=== PATIENT | female | born 2005 | race African-American/Black ===

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

== ENCOUNTER 2025-02-18 15:53 | Emergency (ER) | payer OTHER, SELFPAY ==
[2025-02-18 16:23] VITALS: BP 118/74; PULSE 88; RESP 16; TEMP 36.3; O2SAT 100; BMI 27.4
--- NOTE | 2025-02-18 16:25 | ED_ITS ---
HPI - General Adult General Chief complaint: General Medical Stated complaint: test? Time Seen by Provider: 02/18/25 18:23 Source: patient Mode of arrival: ambulatory Limitations: no limitations History of Present Illness ED Provider: DOM BRAN PA-C HPI narrative: 19 year old female presents to the ED today requesting a test and STD testing. She has no complaints/ concerns at present. States I just want to make sure . LMP 2-3 weeks ago. She is currently sexually active. She is not on control. Related Data Allergies Allergy/AdvReac Type Severity Reaction Status Date / Time shellfish derived (shellfish) Allergy Rash Verified 02/18/25 16:26 Review of Systems Review of Systems: Yes all other systems are reviewed and are negative PMFSH Past Medical History Attestation statement: The following information was validated with the patient. Source: old records reviewed and nursing notes reviewed Social History Social History Advance Directives: No Advance Directives Information Provided: No Do you have a plan to hurt others: No Plan Physical Exam ED Vital Signs: Vital Signs - 24 hr 02/18/25 16:23 02/18/25 19:01 Temperature 97.4 F 97.4 F Pulse Rate 88 88 Respiratory Rate 16 16 Blood Pressure 118/74 118/74 Pulse Oximetry 100 100 Oxygen Delivery Method Room Air Room Air BMI result Body Mass Index 27.4 vital signs stable, afebrile General: Well appearing, in no acute distress. Skin: Warm, dry, intact. No rashes or lesions. Head: Normocephalic, atraumatic. Cardiac: Chest wall symmetric Lungs: Normal respiratory effort without accessory muscle use Abdomen: Soft, non-tender, non-distended Neuro: AOx3. Normal speech. Ambulating with steady gait. Course Course Course Narrative: Rapid medical examination performed in triage by Lisa Yost PA-C. Patient is a 19 year old assigned female at presenting to the emergency department requesting STI and testing. Patient states she doesn't have symptoms but she wants to be checked for everything . Detailed physical exam and review of systems are deferred to the in processing instructor. Labs / swabs ordered. Patient placed back in the waiting room pending room availability and results. Medical Decision Making Medical Decision Making MDM Narrative: 19 year old female presents to the ED today requesting a test and STD testing. Vital signs stable. Afebrile. she is well appearing and in NAD. Serum hCG, CT/NG/trich/BV and syphilis testing ordered by triage provider. Serum hCG undetectable. Other testing pending. Discussed with patient, she will be contacted with any positive results and will be treated at that time. She is currently asymptomatic. Patient has remained stable throughout ED visit today. Discussed worrisome signs and symptoms and when to return to the ED. All questions answered at this time. Patient is agreeable with disposition and stable for discharge. Differential Diagnosis Differential Diagnoses: The differential diagnosis associated with the presentation includes as above. Admission/Observation not indicated. Lab Data MDM Lab Attestation statement: I reviewed the patient's lab results. as above. Labs: Lab Results 02/18/25 Range/Units 17:39 Beta HCG, Quant < 2 mIU/mL Social Determinants Patient?s care significantly limited by Social Determinants of Health including: Other Social Determinant of Health Critical Care Time Critical Care Time Critical Care Time: No Discharge Plan Discharge Clinical Impression: Negative test Patient Disposition: Home, Self-Care Instructions: Sexually Transmitted Diseases (ED), Safe Sex Practices (ED) Additional Instructions: Presented to the ED today requesting a test and STD testing. Your serum test is negative. You were tested today for gonorrhea, chlamydia, bacterial vaginosis, Trichomonas and syphilis. The results are still pending. You will receive a phone call in 2-3 days with any positive results and will be treated appropriately at that time. If you test positive for any of the above, any partner of yours should be tested and treated appropriately. Do not have sexual intercourse for 10 days or until you test negative for all STDs. If you have intercourse again with an untreated partner, you will be reinfected. Practice safe sex and use a condom. Further testing for herpes and HIV can be obtained at your local clinic or by your PCP.? [facility] can assist with these tests. [facility]: [address] [place] [address] [phone] Please follow up with your primary care physician within two days. Return to the Emergency Department if you experience fevers 100.4? or greater, worsening or uncontrolled pain, rashes, sores, vomiting, or for any other concerning symptoms. Referrals: Physician,Unknown J [Primary Care Provider, Medical] Interventions: ED Discharge Assessment Last Done: 02/18/25 19:01 Discharge Date/Time: 02/18/25 19:02 Print Language: Mosotho
--- OUTSIDE RECORDS SUMMARY | 2025-02-18 18:54 | XMS_ITS | Encounter Summary ---
Author Organization [facility] Address [address] [place] [address] Care Team Providers Care Curtain Inspector Name Role Phone Peter Be MD Primary Care Provider [phone] Reason for Referral * HEEL COVER SPLITTER-Consult (Routine) - Closed Specialty Diagnoses / Procedures Referred By Guera leon Referred To Contact Rheumatology Diagnoses Myalgia, multiple sites Family history of fibromyalgia Peter Be MD [address] [place] [id number] Phone: tel: fax: [facility], Department of Rheumatology[address] [address] Phone: tel: fax: Referral ID Status Reason Start Date Expiration Date V isits Requested Visits Authorized [id number] Closed Specialty Services Required 06/28/2023 05/22/2024 1 99 Encounter Details Date Type Department Care Team (Late st Contact Info) Description 06/28/2023 Community Orders EPICCARE LINK DFLT DEP Peter Be MD [address] [place] [address] Myalgia, multiple sites (Primary Dx); Family history of fibromyalgia Social History Tobacco Use Types Packs/Day Years Used Date Smoking Tobacco: Never Alcohol Use Standard Drinks/Week Comments Not Asked 0 (1 standard drink = 0.6 oz pur e alcohol) Other Needs Answer Date Recorded Anything else about your child you'd like help w ith? Not on file 02/04/2023 Share good news about positive changes: Not on f ile 02/04/2023 Comments No Sex and Gender Information Value Date Recorded Sex Assigned at Not on file Legal Sex Female 9:03 PM EDT Gender Identity Not on file Sexual Orientation Not on file documented as of this encounter Plan of Treatment Scheduled Referrals Name Type Priority Associated Diagnoses Orde r Schedule Community Referral to Rheumatology Outpatient Referral Routine Myalgia, Multiple Sites Family history of fibromyalgia Ordered: 06/28/2023 documented as of this encounter Visit Diagnoses Diagnosis Myalgia, multiple sites- Primary Family history of fibromyalgia documented in this encounter Care Teams Curtain Inspector Relationship Specialty Start Date End Date Peter Be MD [address] [place] [address] PCP - General General Pediatrics 06/28/23 documented as of this encounter
--- OUTSIDE RECORDS SUMMARY | 2025-02-18 18:54 | XMS_ITS | Clinical Summary ---
Author Organization [facility] Address [address] [place] [address] Care Team Providers Care Installation And Service Technician Name Role Phone Pcp, No MD Primary Care Provider Jennifer Perez COATING MACHINE HELPER Unavailable [phone] Charlie Freed COATING MACHINE HELPER Unavailable [phone] Allergies No known active allergies Medications methylphenidate [...] 2021 11: 47 AM EDT Growth Chart: [facility] (Girls, 2- 20 Years) Plan of Treatment Health Maintenance Due Date Last Done Comments HIV Screening 2005 MMR Vaccines (1 of 1 - Stand carrie series) 2006 HPV Vaccines (1 - 3-dose series) 2020 DTaP,Tdap,and Td Vaccines (1 - Tdap) 11/19/2023 Hepatitis B Vaccines (1 of 3 - 19+ 3-dose series) 2024 COVID-19 Vaccine (1 - 2023-2 5 season) 2025 Influenza Vaccine (#1) 2025 Zoster Vaccines (1 [...] patient's age to complete this topic [place] [address] [place] [address] [facility] [employer] Care Teams Installation And Service Technician Relationship Specialty Start Date End Date Pcp, MD Kass[address] [place] [address] PCP - General Internal Medicine 04/01/19 Jennifer Cobb APRN [address] [place] [address] Advanced Nurse Practitioner Obstetrics and Gynecology 11/09/21 Charlie Freed APRN [address] [facility] [place] [address] Advanced Nurse Practitioner Obstetrics and Gynecology 11/18/21
--- OUTSIDE RECORDS SUMMARY | 2025-02-18 18:54 | XMS_ITS | Clinical Summary ---
Author Organization [facility] Address [address] [place] [address] Care Team Providers Care Armored Transport Service Manager Name Role Phone Bronson Jimenez MD Primary Care Provider [phone] Social History Tobacco Use Types Packs/Day Years [...] age to complete this topic Care Teams Armored Transport Service Manager Relationship Specialty Start Date End Date Bronson Jimenez MD PCP - General Pediatrics 12/09/14
--- OUTSIDE RECORDS SUMMARY | 2025-02-18 18:54 | XMS_ITS | Clinical Summary ---
Author Organization [facility] '[facility] Address [address] [place], [place] [id number] Care Team Providers Care School Director Name Role Phone Peter Be MD Primary Care Provider [phone] Source Comments Please note that some or all of the patient's information could have additional privacy protections. State laws allow health care providers to render certain types of treatment to minors without parental consent. Please do not assume that this information can be shared solely by obtaining just the consent of the patient's parent/guardian. Please determine if all or part of the patient's care was rendered without parent/guardian involvement. And, if so, obtain the minor's consent prior to disclosure.[facility] Allergies No known active allergies Medications dexmethylphenid ate (FOCALIN XR) 20 MG 24 hr capsule TAKE 1 CAPSULE BY MOUTH EVERY DAY IN THE MORNING 4 Active medroxyPROGESTE Luis 150 mg/mL Syringe BRING TO OFFICE FOR SCHEDULED APPOINTMENT 4 Active ergocalciferol (VITAMIN D2) 1,250 mcg (50,000 unit) capsuleIndicati ons:Arthralgia of multiple joints,Vitamin D deficiency Take 1 capsule (50,000 Units) by mouth once a week for 28 days 4 capsule 4 Active Active Problems Problem Noted Date Diagnosed Date Functional murmur 11/04/2020 Intercostal pain 11/04/2020 Family history of first-degree relative with car diomyopathy 02/04/2016 Overview (02/04/2016): Father with nonischemic dilated cardiomyopathy, status post transplant Resolved Problems Problem Noted Date Diagnosed Date Resolved Date Systolic ejection murmur 02/04/2016 Assessment & Plan (02/04/2016 10:20 AM EDT): Relevant Hx: Course: Daily Update: Today's Plan: Family History Medical History Relation Name Comments Cardiac Surgery Father Cardiomyopathy Father Fibromyalgia Maternal Aunt Fibromyalgia Maternal Grandmother Fibromyalgia Mother Dermatomyositis Neg Hx Juvenile idiopathic arthritis Neg Hx Lupus Neg Hx Psoriasis Neg Hx Rheum arthritis Neg Hx Scleroderma Neg Hx Sjogren's syndrome Neg Hx Spondyloarthropathy Neg Hx Thyroid disease Neg Hx Relation Name Status Comments Father Maternal Aunt Maternal Grandmother Mother Social History Tobacco Use Types Packs/Day Years Used Date Smoking Tobacco: Some Days Cigarettes Tobacco Cessation:Ready to Q uit: Not Asked; Counseling Given: Not Answered Alcohol Use Standard Drinks/Week Comments Not Asked [...] Sign Reading Time Taken Comments Blood Pressure 131/77 07/28/2023 11:29 AM EST Pulse 31 07/28/2023 11:29 AM EST Temperature - - Respiratory Rate - - Oxygen Saturation 97% 07/28/2023 11: 29 AM EST Inhaled Oxygen Concentration - - Weight 61.2 kg (134 lb 14.7 oz) 024 11:29 AM EST Height 160.6 cm (5' 3.23 ) 07/28/2023 1 1:29 AM EST Body Mass Index 23.73 07/28/2023 11:29 AM EST Body Mass Index Percentile 75.37% 07/27 11:29 AM EST Growth Chart: [facility] (Girls, 2- 20 Years) Plan of Treatment Health Maintenance Due Date Last Done Comments DTaP/TDAP/TD VACCINES (1 - Tdap) 2012 ADOLESCENT HIV SCREENING 2018 COVID-19 Vaccine ( - 2023-2 5 season) 2025 INFLUENZA (#1) 2025 NIRSEVIMAB VACCINES UNDER 8 MONTHS Aged Out No longer eligible based on patient's age to complete this topic Insurance AETNA POS AETNA POS Care Teams School Director Relationship Specialty Start Date End Date Peter Be MD [address] [place] [address] PCP - General General Pediatrics 06/28/23
--- OUTSIDE RECORDS SUMMARY | 2025-02-18 18:54 | XMS_ITS ---
Author Name [facility] Organization Unknown History of Medication Use Medication Directions Dispensed Refills Start Date End Date Stat us methylphenidate (CONCERTA) 54 MG extended release tablet TAKE 1 TABLET BY MOUTH EVERY DAY 11/16/2015 07/28/2023 aborted Problems Problem Status Onset Date Problem Type Date of Resolution Source Functional murmur active 2020-11-04 ProblemAct [facility] Family history of first-degree relative with cardiomyopathy active 2016-02-04 ProblemAct [facility] Intercostal pain active 2020-11-04 ProblemAct [facility] Vaginal discharge active EncounterDiagnosisAct [facility] Encounters Encounter Type Encounter Reason Primary Diagnosis Location Date Ambulatory [facility] ([facility] 08/12/2023 Ambulatory Pain in unspecified joint Pain in unspecified joint [facility] ([facility]) 07/28/2023 Ambulatory [facility] 2021 Care Team Organization Name Specialty Phone Email Start Date End Da te [facility] DENISE Primary Care 07/28/2023 12/05/19 [facility] ([facility] ERNESTO WALKER Primary Care 07/28/2023 [facility] RASHEEDA NAVA Primary Care 03/30/202201/08 [facility] PCP,No Primary Care 2021
[2025-02-18 19:01] VITALS: BP 118/74; PULSE 88; RESP 16; TEMP 36.3; O2SAT 100
[2025-02-19 04:41] LABS: Bacterial Vaginosis PCR NEGATIVE (Negative); Candida Group PCR DETECTED (Not Detect); Candida glab krusei PCR NOT DETECTED (Not Detect); Trichomonas vaginalis PCR NOT DETECTED (Not Detect)
[2025-02-19 05:11] LABS: CT PCR NOT DETECTED (Not Detect.); NG PCR NOT DETECTED (Not Detect.)
[2025-02-19 05:14] LABS: Syphilis Screen Nonreactive (Nonreactive)
== END 2025-02-18 19:02 | disposition home or self-care (01) ==
PROVIDERS: Physician Assistant Medical; Emergency Provider Emergency Medicine
DX: B37.89 Other sites of candidiasis (principal); Z32.02 Encounter for pregnancy test, result negative
CPT/HCPCS: 36415; 81515; 84702; 86780; 87491; 87591; 99282; 99283